=== PATIENT | male | born 1965 | race Caucasian/White ===

== ENCOUNTER → 2018-11-28 | Day surgery (SDC) | payer MEDICAID ==
[~2018-11-28] VITALS: Ht 177.8 cm; Wt 127.0 kg
[~2018-11-28] MED LIST: BUPIVACAINE 0.75% INJ 10ML MPV SDV IJ ONE; HYDROmorphone HCL 2 MG/ML VL IV PRN; IBUP200C3 PO; LIDOCAINE 1% INJ PF 5ML AMP ONE; MIDAZOLAM HCL 1MG/1ML-2 ML VIAL ONE; NEOMYCIN-BACITRACIN-POLYM 15GM TOP OINT TOP ONE; PROPOFOL 10 MG/ML 20 ML IV ONE; ceFAZolin 1GM/50ML 50 ML IV ONE; fentaNYL CITRATE 100 MCG/2 ML VL ONE
[2018-11-28 12:27] VITALS: BP 125/81
== END | disposition home or self-care (01) ==
LOC: SUR 08:58
PROVIDERS: ATTEND Podiatrist Foot & Ankle Surgery
DX: M20.11 Hallux valgus (acquired), right foot (principal); E66.9 Obesity, unspecified; G47.33 Obstructive sleep apnea (adult) (pediatric); M19.90 Unspecified osteoarthritis, unspecified site; E66.01 Morbid (severe) obesity due to excess calories; Z87.891 Personal history of nicotine dependence; Z79.899 Other long term (current) drug therapy; Z98.890 Other specified postprocedural states
CPT/HCPCS: 28296; J3010; L3260; Q4137; C1769; J0690; J2250; J2704; J3490

== ENCOUNTER 2019-07-31 06:52 | Day surgery (SDC) | payer MEDICAID ==
[2019-07-26 13:01] LABS: Basophils % (auto) 0.8 % (0.0-2.0); Eosinophils # (auto) 0.1 uL; Nucleated Red Blood Cells % 0.1 %; White Blood Cell 6.4 10^3/uL (4.4-10.8)
[2019-07-26 13:02] LABS: Basophils # (auto) 0.1 uL; Eosinophils % (auto) 2.3 % (0.0-7.0); Hematocrit 42.7 % (41.0-53.0); Hemoglobin 15.1 g/dL (13.5-17.5); Lymphocytes # (auto) 1.7 uL; Lymphocytes % (auto) 26.1 % (10.0-50.0); Mean Corpuscular Hemoglobin 36.1 pg (28.0-32.0); Mean Corpuscular Hgb Conc. 35.4 g/dL (32.0-36.0); Mean Corpuscular Volume 102.1 fL (80.0-100.0); Monocytes # (auto) 0.5 uL; Monocytes % (auto) 7.9 % (0.0-12.0); Neutrophils % (auto) 62.9 % (37.0-80.0); Platelet Count (auto) 250 10^3/uL (140-450); Red Blood Cells 4.19 10^6/uL (4.5-5.90); Red Cell Distribution Width 13.1 % (11.8-14.3)
[2019-07-26 13:24] LABS: INR 0.95 (0.9-1.15); Partial Thromboplastin Time 26.1 sec (23.64-32.05)
[2019-07-26 13:30] LABS: Albumin 3.8 g/dL (3.4-5.0); Calcium 8.6 mg/dL (8.5-10.1); Potassium 4.1 mmol/L (3.5-5.1)
[2019-07-26 13:35] LABS: BUN/Creatinine Ratio 10.9; Bilirubin, Total 0.8 mg/dL (0.2-1.0); Total Protein 6.8 g/dL (6.4-8.2)
[~2019-07-31] VITALS: Ht 177.8 cm; Wt 131.5 kg
[~2019-07-31 06:52] MED LIST changes: -BUPIVACAINE 0.75% INJ 10ML MPV SDV IJ ONE; -HYDROmorphone HCL 2 MG/ML VL IV PRN; -LIDOCAINE 1% INJ PF 5ML AMP ONE; -MIDAZOLAM HCL 1MG/1ML-2 ML VIAL ONE; -NEOMYCIN-BACITRACIN-POLYM 15GM TOP OINT TOP ONE; -PROPOFOL 10 MG/ML 20 ML IV ONE; -ceFAZolin 1GM/50ML 50 ML IV ONE; -fentaNYL CITRATE 100 MCG/2 ML VL ONE
[2019-07-31] MEDS ORDERED: ceFAZolin 1GM/50ML 50 ML IV ONE (08:24)
[2019-07-31] MEDS ORDERED: fentaNYL CITRATE 100 MCG/2 ML VL ONE (09:15)
[2019-07-31] MEDS ORDERED: MIDAZOLAM HCL 1MG/1ML-2 ML VIAL ONE (09:15)
[2019-07-31] MEDS ORDERED: ONDANSETRON HCL 4 MG/2 ML VIAL ONE (09:15)
[2019-07-31] MEDS ORDERED: SODIUM CHLORIDE LOCK 10 ML ONE (09:15)
[2019-07-31] MEDS ORDERED: PROPOFOL 10 MG/ML 20 ML IV ONE (09:15)
[2019-07-31] MEDS ORDERED: ROPIVACAINE 0.5% (5MG/ML) 20ML AMPULE IJ ONE (09:26)
[2019-07-31] MEDS ORDERED: MORPHINE SULFATE 4 MG/ML SYR/VIAL IV PRN (09:45)
[2019-07-31] MEDS ORDERED: HYDROmorphone HCL 2 MG/ML VL IV PRN (09:45)
[2019-07-31] MEDS ORDERED: fentaNYL CITRATE 100 MCG/2 ML VL IV PRN (09:45)
[2019-07-31] MEDS ORDERED: KETOROLAC TROMETH 30 MG/ML 1ML VIAL IV ONE (09:45)
[2019-07-31] MEDS ORDERED: METOCLOPRAMIDE HCL 5MG/ml INJ 2ml VIAL IV PRN (09:45)
[2019-07-31] MEDS ORDERED: methylPREDNISolone ACETATE 80 MG/ML VL ONE (09:48)
[2019-07-31 10:33] VITALS: BP 117/67
== END 2019-07-31 11:50 | disposition home or self-care (01) ==
LOC: SUR 06:52
PROVIDERS: ATTEND Podiatrist Foot & Ankle Surgery
DX: G57.52 Tarsal tunnel syndrome, left lower limb (principal); E66.01 Morbid (severe) obesity due to excess calories; F12.90 Cannabis use, unspecified, uncomplicated; Z86.79 Personal history of other diseases of the circulatory system; Z87.891 Personal history of nicotine dependence; Z68.41 Body mass index [BMI] 40.0-44.9, adult
CPT/HCPCS: 27626; 36415; 80053; 85025; 85610; 85730; 88304; 93005; J0690; J1040; J2250; J2405; J2704; J2795; J3010